=== PATIENT | male | born 1955 | race Caucasian/White ===

== ENCOUNTER → 2016-08-08 | Outpatient (CLI) | payer BC ==
[~2016-08-08] MED LIST: ASPEC81 PO; HYDR-5688 PO; LISI-729 PO; PRAV20TA PO
== END | disposition home or self-care (01) ==
LOC: C.RDSM 08:00
PROVIDERS: ATTEND Physical Medicine & Rehabilitation Sports Medicine
DX: M79.671 Pain in right foot (principal)

== ENCOUNTER → 2016-08-14 | Day surgery (SDC) | payer BC ==
[2016-08-11 12:08] LABS: HEMATOCRIT 42.4 % (42-52); MEAN CORPUSCULAR HEMOGLOBIN 33.7 pg (25-34); MEAN CORPUSCULAR HGB CONC 35.8 g/dl (32-36); MEAN PLATELET VOLUME 9.7 fL (7.4-10.4); PLATELET COUNT 170 K/uL (130-400); RED BLOOD COUNT 4.51 M/uL (4.7-6.1); WHITE BLOOD COUNT 3.92 K/uL (4.8-10.8)
[2016-08-11 12:42] LABS: BLOOD UREA NITROGEN 14 mg/dl (7-18); BUN/CREATININE RATIO 14.8 (10-20); CARBON DIOXIDE 27 mmol/L (21-32); CHLORIDE 107 mmol/L (98-107); CREATININE 0.96 mg/dl (0.60-1.40); GLUCOSE 97 mg/dl (70-99); POTASSIUM 3.9 mmol/L (3.5-5.1); SODIUM 142 mmol/L (136-145)
[2016-08-13 11:38] VITALS: Ht 182.9 cm; Wt 75.0 kg
[~2016-08-14] VITALS: Ht 182.9 cm; Wt 75.0 kg
[~2016-08-14] MED LIST changes: -ASPEC81 PO; +BUPIVACAINE/EPINEPHRINE 0.5% MPF 1:200,000 30 ML VIAL ONE; +CEFAZOLIN 1000MG/55 ML D5W IV SCH; +FENTANYL CITRATE INJ 50 MCG/1 ML 2 ML VIAL ONE; +HYDROCODONE/ACETAMOPHEN 5/325MG TAB PO PRN; +LACTATED RINGER'S 1000ML 1,000 ML IV SCH; +LIDOCAINE HCL 2% 2 ML VIAL (20MG/ML) ONE; +LIDOCAINE/EPINEPHRINE 1% INJ 50 ML VIAL ONE; +MIDAZOLAM HCL 1 MG/ML 2ML VIAL ONE; +MoRPHine SULFATE 2 MG/ML CARP IV PRN; +MoRPHine SULFATE 4 MG/ML 1 ML CARP\\VIAL IV PRN; +ONDANSETRON INJ 2 MG/ML 2 ML VIAL IV PRN; +PROPOFOL IV EMULSION 10 MG/ML 20 ML VIAL IV ONE; +SODIUM CHLORIDE 0.9% 1000ML 1,000 ML IV SCH
--- NOTE | 2016-08-14 12:59 | History & Physical Bridge Note ---
H&P Re-Evaluation Bridge Note: I have examined the patient, reviewed the History & Physical and in the interval since the performance of the History & Physical I have noted the following changes of clinical significance: No changes noted
[2016-08-14 14:37] VITALS: TEMP 36.6
--- NOTE | 2016-08-14 14:49 | Discharge Instructions-SurgCtr ---
Discharge Instructions Visit Reason for Visit: Right Foot Mass Discharge Discharge Diagnosis / Problem: Status post right foor mass excision Discharge Goals Goal(s): Decrease discomfort, Improve function, Increase independence Activity Recommendations Activity Limitations: per Instructions/Follow-up section DIET: * Resume previous diet. MEDICATIONS: * Please take your prescriptions as instructed at your pre-op appointment and/ or see medication discharge instructions listed above. * If concerns develop, call your physician's office at . SPECIAL CARE INSTRUCTIONS: * Weight bearing as tolerated with crutches. * Ice/Elevate as instructed. * Keep dressing clean, dry, intact. Remove after 4-5 days and put a band aid. * Your surgical extremity may be discolored due to prepping agents used on the skin. A bluish-green tint is a normal variant and should not cause alarm. Call your doctor at [phone] if: * Temperature above 101 degrees * Pain not relieved by pain medicine ordered * There is increased drainage or redness from any incision * You have any unanswered questions, problems or concerns. FOLLOW UP VISIT: * If not already scheduled, please call the office at to schedule a follow-up appointment. * Follow up with Dr. Delgadillo on 08/26/16 at 9:15 am. Anesthesia . Post Anesthesia Instructions: If you have had General Anesthesia or IV Sedation: * Do not drive today. * Resume driving when surgeon permits. * Do not make important decisions or sign legal documents today. * Call surgeon for: 1. Temperature elevations greater than 101 degrees F. 2. Uncontrollable pain. 3. Excessive bleeding. 4. Persistent nausea and vomiting. 5. Medication intolerance (nausea, vomiting or rash). * For nausea and vomiting use only clear liquids such as: tea, soda, bouillon until nausea subsides, then gradually increase diet as tolerated. * If you have any concerns or questions, call your surgeon's office. If physician is unavailable and it is an emergency, call 911 or go to the nearest emergency room. . Procedures Procedures Performed: Excision Mass of Right Foot Pending Studies Studies pending at discharge: no Medical Emergencies . Who to Call and When: Medical Emergencies: If at any time you feel your situation is an emergency, please call 911 immediately. . Non-Emergent Contact Non-Emergency issues call your: Surgeon Call Non-Emergent contact if: temperature is above 100.5, your pain is worsening, wound has increased redness . . "Provider Documentation" section prepared by Ubaldo Sagastume.
--- NOTE | 2016-08-14 14:49 | [facility] Post Operative Brief Note ---
Immediate Operative Summary Operative Date Aug 14, 2016. Pre-Operative Diagnosis A. Mass Right Foot Post-Operative Diagnosis Same Procedure(s) Performed Excision Mass of Right Foot Surgeon Dr. Danyelle Delgadillo Sql Ssrs Developer Surgeon(s) mary valadez med student Estimated Blood Loss Minimal Findings plantar mass 5mm adherent to skin Specimens A. Mass Right Foot Drains 0 Anesthesia local with IV sedation Complication(s) None Disposition Recovery Room / PACU
--- NOTE | 2016-08-14 14:50 | [facility] Post Operative Brief Note ---
Immediate Operative Summary Operative Date Aug 14, 2016. Pre-Operative Diagnosis A. Mass Right Foot Post-Operative Diagnosis Same Procedure(s) Performed Excision Mass of Right Foot Surgeon Dr. Danyelle Delgadillo Host Surgeon(s) mary valadez med student Estimated Blood Loss Minimal Specimens A. Mass Right Foot Complication(s) None Disposition PCU
--- NOTE | 2016-08-14 15:01 | Anesthesia Progress Nt - [facility] ---
Anesthesia Post Op Note Date & Time Aug 14, 2016 at 15:02 Vital Signs Pain Intensity: 0 Vital Signs Past 12 Hours Date Time Temp Pulse Resp B/P Pulse Ox O2 Delivery O2 Flow Rate FiO2 08/14/16 14:37 36.6 71 16 118/74 97 Room Air 08/14/16 13:03 36.3 66 18 149/94 98 Room Air Notes Mental Status: alert / awake / arousable, participated in evaluation Pt Amnestic to Procedure: Yes Nausea / Vomiting: adequately controlled Pain: adequately controlled Airway Patency, RR, SpO2: stable & adequate BP & HR: stable & adequate Hydration State: stable & adequate Anesthetic Complications: no major complications apparent
--- NOTE | 2016-08-14 15:02 | Medical Student: [facility] ---
Immediate Operative Summary Operative Date Aug 14, 2016. Pre-Operative Diagnosis Plantar mass of right foot Post-Operative Diagnosis Same Procedure(s) Performed Excision of mass on right foot Surgeon Ezequiel Delgadillo MD Estimated Blood Loss Minimal Findings 1cm x 1cm subcutaneous mass on plantar aspect of right foot Specimens Mass of right foot Drains None Complication(s) None Disposition Recovery Room / PACU
[2016-08-14 15:08] VITALS: BP 127/75; PULSE 60; O2SAT 98
--- NOTE | 2016-08-14 17:39 | OPERATIVE REPORT ---
DATE OF OPERATION: 08/14/2016 PREOPERATIVE DIAGNOSIS: Right foot mass. POSTOPERATIVE DIAGNOSIS: Same. PROCEDURE: Excisional biopsy, right foot mass. SURGEON: Dr. Delgadillo. [employer] MAINTENANCE SPECIALIST: Arnaud Sr, third year medical student. ANESTHESIA: Local with IV sedation. INDICATIONS OF PROCEDURE: The patient is a 61-year-old male with a lesion on the plantar aspect of his right foot just proximal to the first metatarsophalangeal joint. The lesion causes tightness, not necessarily painful. He would like to have it excised. It may have gotten slightly larger and has been present there for a year or more. OPERATION AND FINDINGS: PROCEDURE IN DETAIL: Informed consent was obtained. The patient identified as Delano Clayton. He identified the operative site as the right foot. I marked it with my initials. A preop surgical time out performed. A preop dose of IV antibiotics was given. He was positioned supine on the OR table. Sedation was administered and local anesthetic of 1% lidocaine with epinephrine, 0.5% Marcaine with epinephrine was injected for a field block. There was a 4-5 mm lesion which appeared to be firmly fixed to the skin, but not causing any skin changes, just proximal to the first MTP joint on the plantar aspect of the foot. The leg was prepped and draped in usual sterile fashion. DVT prophylaxis was not indicated. Routine prep and drape was performed. The limb was exsanguinated with the Esmarch and the Esmarch was tied off to itself just above the ankle. Tourniquet time was approximately 10 minutes. An ellipsoid incision was made through the skin. Proximally and distally I left the subcutaneous fat. Centrally where the lesion was I carefully dissected through the subcutaneous fat taking as little bit as possible and removing the entire lesion. This was sent for pathological specimen. The lesion was firm and about the size of a large pea. There is nothing further to note. There were no other masses. The lesion was attached to the skin and possibly into the subcutaneous fat but did not appear to go down into the plantar fascia. The tourniquet was let down, meticulous hemostasis was performed and the wound closed in a tension-free fashion with interrupted 3-0 Prolene horizontal mattress stitches. A soft sterile dressing was applied. The patient was then awakened from anesthesia without difficulty, taken to recovery room in stable condition. There were no complications. Specimens were as mentioned above. Counts were correct. Blood loss minimal. At the conclusion of the operation, I spoke to patient's family, his and informed her of my findings. Postoperative instructions were given. I attest to the content of the Intraoperative Record and any orders documented therein. Any exceptio ns are noted below.
== END | disposition home or self-care (01) ==
LOC: X.SURG 10:43
PROVIDERS: ATTEND Physical Medicine & Rehabilitation Sports Medicine
DX: D21.21 Benign neoplasm of connective and other soft tissue of right lower limb, including hip (principal); R22.41 Localized swelling, mass and lump, right lower limb; I10 Essential (primary) hypertension; E78.5 Hyperlipidemia, unspecified; Z85.828 Personal history of other malignant neoplasm of skin; Z90.89 Acquired absence of other organs; Z96.653 Presence of artificial knee joint, bilateral; Z80.0 Family history of malignant neoplasm of digestive organs; Z80.1 Family history of malignant neoplasm of trachea, bronchus and lung; Z83.3 Family history of diabetes mellitus; Z88.2 Allergy status to sulfonamides; E78.00 Pure hypercholesterolemia, unspecified

== ENCOUNTER → 2016-09-17 | Outpatient (CLI) | payer BC ==
[~2016-09-17] MED LIST changes: -BUPIVACAINE/EPINEPHRINE 0.5% MPF 1:200,000 30 ML VIAL ONE; -CEFAZOLIN 1000MG/55 ML D5W IV SCH; -FENTANYL CITRATE INJ 50 MCG/1 ML 2 ML VIAL ONE; -HYDROCODONE/ACETAMOPHEN 5/325MG TAB PO PRN; -LACTATED RINGER'S 1000ML 1,000 ML IV SCH; -LIDOCAINE HCL 2% 2 ML VIAL (20MG/ML) ONE; -LIDOCAINE/EPINEPHRINE 1% INJ 50 ML VIAL ONE; -MIDAZOLAM HCL 1 MG/ML 2ML VIAL ONE; -MoRPHine SULFATE 2 MG/ML CARP IV PRN; -MoRPHine SULFATE 4 MG/ML 1 ML CARP\\VIAL IV PRN; -ONDANSETRON INJ 2 MG/ML 2 ML VIAL IV PRN; -PROPOFOL IV EMULSION 10 MG/ML 20 ML VIAL IV ONE; -SODIUM CHLORIDE 0.9% 1000ML 1,000 ML IV SCH
--- NOTE | 2016-09-17 11:36 | DIAGNOSTIC IMAGING REPORT ---
PET/CT HISTORY: Foot lesion. Right foot lesion GRANULAR CELL TUMOR TECHNIQUE: PET/CT was performed from the base of the skull through the pelvis following the intravenous administration of 15.4 mCi of F18-FDG. Non-contrast CT imaging was performed over the same range without breath-hold for attenuation correction of PET images and anatomic correlation, but not for primary interpretation as it is not of standard diagnostic quality. CT DOSE: COMPARISON: None. FINDINGS: HEAD AND NECK: There is no FDG-avid disease or significant lymphadenopathy in the imaged portions of the head and the neck. CHEST: There is no FDG-avid disease in the chest. There is no axillary, mediastinal, or hilar lymphadenopathy. There is no pleural or pericardial effusion. There is no air-space disease or suspicious lung nodule. ABDOMEN/PELVIS: Below the diaphragm, tracer is distributed physiologically in the gastrointestinal and genitourinary tracts. There is no significant lymphadenopathy and no FDG-avid disease. MUSCULOSKELETAL: There is no FDG-avid or destructive bone lesion. IMPRESSION: There is no definite evidence of recurrent FDG-avid disease. This study is considered negative. No abnormal activity characteristics of the lower extremities Electronically signed by: Riaz Fu M.D. 09/17/2016 11:35 AM Dictated Date/Time: 09/17/2016 11:23 AM
== END | disposition home or self-care (01) ==
LOC: C.PET 08:50
PROVIDERS: ATTEND Physical Medicine & Rehabilitation Sports Medicine
DX: C80.1 Malignant (primary) neoplasm, unspecified (principal)

== ENCOUNTER → 2016-10-31 | Outpatient (CLI) | payer BC ==
[~2016-10-31] MED LIST changes: +GADAVIST IV PRN
--- NOTE | 2016-10-31 12:01 | DIAGNOSTIC IMAGING REPORT ---
RIGHT FOOT MRI WITH AND WITHOUT CONTRAST HISTORY: Right FOOT PAIN;SCAN ENTIRE FOOT postop removal of a right foot lesion. TECHNIQUE: Multiplanar multisequence MRI of the right foot was performed both before and after the intravenous administration of contrast. COMPARISON STUDY: Right foot 08/08/2016. FINDINGS: There is a skin marker along the plantar surface of the first MTP joint. Minimal enhancement within the subcutaneous soft tissues deep to the skin marker. No areas of masslike enhancement identified. There are no masses identified within the foot. Subcutaneous soft tissue thickening at this location favors scarring from the postoperative change. Increased T2 signal within the medial sesamoid bone of the first digit. This is consistent with a sesamoiditis. No abnormal fluid collections identified. Mild degenerative changes within the midfoot. No fracture or dislocation within the foot. IMPRESSION: 1. Minimal enhancement within the subcutaneous soft tissues at the plantar surface of the first MTP joint suggestive of postoperative change. No mass masses identified. 2. Medial sesamoiditis at the first digit. Electronically signed by: Maksim Blanco M.D. 10/31/2016 11:59 AM Dictated Date/Time: 10/31/2016 11:41 AM
== END | disposition home or self-care (01) ==
LOC: C.MRI 09:31
PROVIDERS: ATTEND Physical Medicine & Rehabilitation Sports Medicine
DX: D21.9 Benign neoplasm of connective and other soft tissue, unspecified (principal)

== ENCOUNTER → 2017-02-03 | Outpatient (CLI) | payer BC ==
--- NOTE | 2017-02-03 09:21 | DIAGNOSTIC IMAGING REPORT ---
MRI OF THE RIGHT FOREFOOT WITHOUT AND WITH GADOLINIUM CLINICAL HISTORY: Granular cell tumor status post resection. COMPARISON STUDY: 10/31/2016 FINDINGS: Imaging was performed in the sagittal, axial, and coronal planes before and after the administration of 7.5 cc of intravenous Gadavist. There is stable marrow edema involving the medial sesamoid of the great toe. Marrow signal is otherwise unremarkable. There is stable minimal enhancement within the subcutaneous soft tissues deep to the skin marker which is located along the plantar surface of the first metatarsal phalangeal joint. There is subcutaneous soft tissue thickening. There is no discrete mass. There are no pathologic fluid collections. The findings likely represent postsurgical granulation tissue. IMPRESSION: 1. No significant change from the preceding study 2. No MRI evidence of a recurrent mass 3. Minimal enhancement in the subcutaneous soft tissues at the plantar aspect of the first metatarsal phalangeal joint, likely postoperative 4. Stable marrow edema involving the medial sesamoid of the great toe, consistent with a sesamoiditis Electronically signed by: To Waller M.D. 02/03/2017 9:20 AM Dictated Date/Time: 02/03/2017 9:07 AM
== END | disposition home or self-care (01) ==
LOC: C.MRI 07:37
PROVIDERS: ATTEND Orthopaedic Surgery
DX: D21.9 Benign neoplasm of connective and other soft tissue, unspecified (principal)

== ENCOUNTER → 2017-08-18 | Outpatient (CLI) | payer BC ==
[~2017-08-18] MED LIST changes: -HYDR-5688 PO
--- NOTE | 2017-08-18 11:38 | DIAGNOSTIC IMAGING REPORT ---
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 COMPARISON STUDY: MRI of the right foot February 03, 2017. TECHNIQUE: Utilizing a 1.5 Lillie magnet and dedicated coil, multiplanar, multiecho imaging of the right forefoot was performed pre and postcontrast administration. Injection of 7.5 cc of Gadavist IV was uneventful. FINDINGS: A skin marker was placed along the plantar surface of the right first metatarsophalangeal joint. No nodular enhancement is identified to suggest recurrent tumor status post resection. The postoperative appearance is unchanged. No masses are identified within the right forefoot. Minimal subcutaneous signal abnormality within the operative bed is unchanged and suggest scarring. Edema and enhancement within the medial sesamoid of the right great toe is unchanged. Mild marrow edema within the right midfoot is likely degenerative. No fluid collections are identified to suggest abscess. IMPRESSION: 1. No evidence for residual/recurrent malignancy status post resection of a right foot mass. 2. Medial sesamoiditis of the right first toe. Electronically signed by: Timothy Flaherty M.D. 08/18/2017 11:36 AM Dictated Date/Time: 08/18/2017 11:18 AM
== END | disposition home or self-care (01) ==
LOC: C.MRI 09:25
PROVIDERS: ATTEND Orthopaedic Surgery
DX: D21.9 Benign neoplasm of connective and other soft tissue, unspecified (principal)

== ENCOUNTER → 2017-09-03 | Outpatient (CLI) | payer BC ==
[~2017-09-03] MED LIST changes: -GADAVIST IV PRN
--- NOTE | 2017-09-03 12:43 | DIAGNOSTIC IMAGING REPORT ---
RIGHT HAND ULTRASOUND CLINICAL HISTORY: Soft tissue lesion. Right hand ganglion cyst. COMPARISON STUDY: No previous studies for comparison. TECHNIQUE: Sonography of the right hand at site of palpable abnormalities was performed. FINDINGS: Note is made of a 0.4 x 0.3 x 0.4 cm cystic abnormality within the right hand which corresponds to a palpable abnormality. This is located between the first and second digits. This contains a thin septation without color flow. There is a similar-appearing but smaller 0.2 cm cystic lesion located between the second and third digits. This contains no color flow. IMPRESSION: Two small cystic lesions of the right hand, as described above. These correspond to the palpable abnormalities. While nonspecific, ganglion cysts are favored. Clinical follow up to ensure stability is recommended. If progressive enlargement, repeat ultrasound is recommended. Electronically signed by: Timothy Flaherty M.D. 09/03/2017 12:41 PM Dictated Date/Time: 09/03/2017 12:39 PM
== END | disposition home or self-care (01) ==
LOC: C.ULTR 12:00
PROVIDERS: ATTEND Physician Assistant
DX: M79.9 Soft tissue disorder, unspecified (principal)